=== PATIENT | male | born 1950 | race Caucasian/White ===

== ENCOUNTER 2023-03-30 16:05 | Emergency (ER) | payer MEDICARE, BC ==
[2023-03-30 17:37] LABS: BASOPHILS ABSOLUTE AUTO 0.01 K/uL (0.00-0.20); BASOPHILS PERCENT AUTO 0.1 % (0.0-2.0); EOSINOPHILS ABSOLUTE AUTO 0.03 K/uL (0.00-0.50); EOSINOPHILS PERCENT AUTO 0.2 % (0.0-5.0); HEMOGLOBIN 15.2 g/dL (13.1-16.8); LYMPHOCYTES ABSOLUTE AUTO 0.34 K/uL (0.50-3.50); MEAN CORPUSCULAR HEMOGLOBIN 29.9 pg (28.2-33.3); MEAN CORPUSCULAR HGB CONC 33.8 g/dL (31.7-36.0); MEAN CORPUSCULAR VOLUME 88.4 fL (84.0-98.0); MONOCYTES ABSOLUTE AUTO 0.88 K/uL (0.00-1.00); MONOCYTES PERCENT AUTO 5.1 % (2.0-14.0); NEUTROPHILS ABSOLUTE AUTO 16.05 K/uL (1.40-7.00); NEUTROPHILS PERCENT AUTO 92.6 % (45.0-80.0); PLATELET COUNT,PLT 210 K/uL (150-350); RED BLOOD CELL COUNT 5.09 M/uL (4.33-5.41); RED CELL DISTRIBUTION WIDTH 13.7 % (11.2-14.1); WHITE BLOOD CELL COUNT,WBC 17.3 K/uL (4.0-10.2)
[2023-03-30 17:53] LABS: ALBUMIN 3.9 g/dL (3.4-5.0); ANION GAP 6.8 meq/L (7-15); BILIRUBIN TOTAL 0.7 mg/dL (0.2-1.0); CALCIUM 9.1 mg/dL (8.5-10.1); CARBON DIOXIDE,CO2 29.2 mmol/L (21.0-32.0); CREATININE 1.22 mg/dL (0.51-1.17); EST CRCL DRUG DOSING (CG) 56.05 mL/min; POTASSIUM,K 4.4 mmol/L (3.5-5.1); PROTEIN TOTAL,TP 6.9 g/dL (6.4-8.2)
[2023-03-30 17:55] LABS: INR 2.8
[2023-03-30 18:13] LABS: PROTHROMBIN TIME 27.3 SEC (9.6-11.3)
[2023-03-30] MEDS ORDERED: HYDROmorphone 0.5 MG/0.5 ML Syringe IVPUSH ONE (18:19)
== END 2023-03-30 18:40 ==
LOC: SUPCPDRO 16:05 → LL.ED 16:05
DX: S72.002A Fracture of unspecified part of neck of left femur, initial encounter for closed fracture (principal); I11.0 Hypertensive heart disease with heart failure; I50.9 Heart failure, unspecified; K21.9 Gastro-esophageal reflux disease without esophagitis; Z79.899 Other long term (current) drug therapy; Z88.0 Allergy status to penicillin; W19.XXXA Unspecified fall, initial encounter
CPT/HCPCS: 36415; 80053; 85025; 85610; 96374; 99283; 99283-25; J1170

== ENCOUNTER 2024-05-12 00:01 | Inpatient (IN) | payer MEDICARE, BC, MEDICAID ==
[~2024-05-12 00:01] MED LIST: Pharmacy Consult Order SCH
[2024-05-13] MEDS: Potassium Chloride 20 MEQ Tab.ER PO SCH (07:48)
[2024-05-13] MEDS: Omeprazole 20 MG Cap.CR PO SCH (07:49)
[2024-05-13] MEDS: Polyethylene Glycol 3350 Powder 510 GM Bot PO SCH (07:49)
[2024-05-14 08:11] LABS: INR 3.4 (0.9-1.1)
[2024-05-21 08:22] LABS: BLOOD UREA NITROGEN,BUN 29.0 mg/dL (7-18); CARBON DIOXIDE,CO2 31.0 mmol/L (21.0-32.0); CHLORIDE,CL 104.0 mmol/L (98-107); CREATININE 1.24 mg/dL (0.51-1.17); EST CRCL DRUG DOSING (CG) 67.57 mL/min; GLUCOSE RANDOM 126.0 mg/dL (70-99); POTASSIUM,K 4.1 mmol/L (3.5-5.1); PRO B-TYPE NATRIUR PEPT,BNPPRO 1544.0 pg/mL (0-125); SODIUM,NA 141.0 mmol/L (136-145)
[2024-05-21 08:26] LABS: ESTIMATED GFR 61.0 mL/min (>=60)
[2024-05-22 07:52] LABS: INR 3.7
[2024-05-29 07:32] LABS: INR 3.0
[2024-06-05 07:40] LABS: INR 3.6
[2024-06-06 08:10] LABS: BLOOD UREA NITROGEN,BUN 23.0 mg/dL (7-18); CARBON DIOXIDE,CO2 27.9 mmol/L (21.0-32.0); CHLORIDE,CL 105.0 mmol/L (98-107); CREATININE 1.26 mg/dL (0.51-1.17); EST CRCL DRUG DOSING (CG) 65.49 mL/min; GLUCOSE RANDOM 113.0 mg/dL (70-99); POTASSIUM,K 4.0 mmol/L (3.5-5.1); PRO B-TYPE NATRIUR PEPT,BNPPRO 2103.0 pg/mL (0-125); SODIUM,NA 141.0 mmol/L (136-145)
[2024-06-06 08:12] LABS: ESTIMATED GFR 59.0 mL/min (>=60)
[2024-06-11 08:00] LABS: BLOOD UREA NITROGEN,BUN 26.0 mg/dL (7-18); CARBON DIOXIDE,CO2 29.1 mmol/L (21.0-32.0); CHLORIDE,CL 105.0 mmol/L (98-107); CREATININE 1.22 mg/dL (0.51-1.17); EST CRCL DRUG DOSING (CG) 67.63 mL/min; ESTIMATED GFR 62.0 mL/min (>=60); GLUCOSE RANDOM 115.0 mg/dL (70-99); POTASSIUM,K 4.1 mmol/L (3.5-5.1); PRO B-TYPE NATRIUR PEPT,BNPPRO 1707.0 pg/mL (0-125); SODIUM,NA 142.0 mmol/L (136-145)
[2024-06-12 07:43] LABS: INR 3.0 (0.9-1.1)
[2024-06-26 07:25] LABS: INR 3.3
[2024-07-10 07:26] LABS: INR 3.2
[2024-07-10 11:15] LABS: BLOOD UREA NITROGEN,BUN 25.0 mg/dL (7-18); CARBON DIOXIDE,CO2 29.0 mmol/L (21.0-32.0); CHLORIDE,CL 101.0 mmol/L (98-107); CREATININE 1.45 mg/dL (0.51-1.17); EST CRCL DRUG DOSING (CG) 56.91 mL/min; GLUCOSE RANDOM 155.0 mg/dL (70-99); POTASSIUM,K 3.9 mmol/L (3.5-5.1); PRO B-TYPE NATRIUR PEPT,BNPPRO 2040.0 pg/mL (0-125); SODIUM,NA 137.0 mmol/L (136-145)
[2024-07-10 11:20] LABS: ESTIMATED GFR 50.0 mL/min (>=60)
[2024-07-12] MEDS: BUMETANIDE 2 MG PO SCH (07:25)
[2024-07-17 08:24] LABS: BLOOD UREA NITROGEN,BUN 30.0 mg/dL (7-18); CARBON DIOXIDE,CO2 30.0 mmol/L (21.0-32.0); CHLORIDE,CL 102.0 mmol/L (98-107); CREATININE 1.44 mg/dL (0.51-1.17); EST CRCL DRUG DOSING (CG) 57.3 mL/min; ESTIMATED GFR 51.0 mL/min (>=60); GLUCOSE RANDOM 120.0 mg/dL (70-99); POTASSIUM,K 3.9 mmol/L (3.5-5.1); PRO B-TYPE NATRIUR PEPT,BNPPRO 1741.0 pg/mL (0-125); SODIUM,NA 140.0 mmol/L (136-145)
[2024-07-31 08:49] LABS: INR 3.2 (0.9-1.1)
[2024-07-31 09:00] LABS: BLOOD UREA NITROGEN,BUN 31.0 mg/dL (7-18); CARBON DIOXIDE,CO2 30.1 mmol/L (21.0-32.0); CHLORIDE,CL 102.0 mmol/L (98-107); CREATININE 1.44 mg/dL (0.51-1.17); EST CRCL DRUG DOSING (CG) 57.3 mL/min; GLUCOSE RANDOM 146.0 mg/dL (70-99); POTASSIUM,K 3.8 mmol/L (3.5-5.1); PRO B-TYPE NATRIUR PEPT,BNPPRO 2233.0 pg/mL (0-125); SODIUM,NA 139.0 mmol/L (136-145)
[2024-07-31 09:02] LABS: ESTIMATED GFR 51.0 mL/min (>=60)
[2024-08-12] MEDS: IPRATROPIUM NEB SCH ×2 (18:17→19:25)
[2024-08-12] MEDS: ALBUTEROL NEB SCH ×2 (18:17→19:25)
[2024-08-13] MEDS: Furosemide 20 MG Tab**OWN MED PO SCH (12:11)
[2024-08-20 10:38] LABS: BLOOD UREA NITROGEN,BUN 27.0 mg/dL (7-18); CARBON DIOXIDE,CO2 30.8 mmol/L (21.0-32.0); CHLORIDE,CL 102.0 mmol/L (98-107); CREATININE 1.53 mg/dL (0.51-1.17); EST CRCL DRUG DOSING (CG) 53.93 mL/min; GLUCOSE RANDOM 119.0 mg/dL (70-99); POTASSIUM,K 3.8 mmol/L (3.5-5.1); SODIUM,NA 141.0 mmol/L (136-145)
[2024-08-20 10:39] LABS: ESTIMATED GFR 47.0 mL/min (>=60)
[2024-09-11 07:44] LABS: INR 4.0 (0.9-1.1)
[2024-09-12] MEDS: FLU (Fluad Triv) TS24-25 (65UP)/MF59C/PF 45 MCG/0.5 ML Syringe IM ONE (08:19)
[2024-09-18 07:44] LABS: INR 3.5
[2024-10-02 07:29] LABS: INR 3.6
[2024-10-08 07:38] LABS: INR 3.8
[2024-10-15 07:40] LABS: INR 2.8
[2024-10-22 07:23] LABS: INR 3.5
[2024-10-29 07:48] LABS: INR 3.1
[2024-11-13 07:56] LABS: INR 3.1
[2024-12-03 07:37] LABS: BLOOD UREA NITROGEN,BUN 27.0 mg/dL (7-18); CARBON DIOXIDE,CO2 32.3 mmol/L (21.0-32.0); CHLORIDE,CL 102.0 mmol/L (98-107); CREATININE 1.41 mg/dL (0.51-1.17); EST CRCL DRUG DOSING (CG) 58.52 mL/min; GLUCOSE RANDOM 133.0 mg/dL (70-99); POTASSIUM,K 3.8 mmol/L (3.5-5.1); SODIUM,NA 141.0 mmol/L (136-145)
[2024-12-03 07:42] LABS: ESTIMATED GFR 52.0 mL/min (>=60)
[2024-12-11 07:30] LABS: INR 2.9
[2024-12-15 08:49] LABS: BLOOD UREA NITROGEN,BUN 26.0 mg/dL (7-18); CARBON DIOXIDE,CO2 27.4 mmol/L (21.0-32.0); CHLORIDE,CL 104.0 mmol/L (98-107); CREATININE 1.4 mg/dL (0.51-1.17); EST CRCL DRUG DOSING (CG) 58.94 mL/min; GLUCOSE RANDOM 154.0 mg/dL (70-99); POTASSIUM,K 4.0 mmol/L (3.5-5.1); SODIUM,NA 141.0 mmol/L (136-145)
[2024-12-15 09:11] LABS: ESTIMATED GFR 52.0 mL/min (>=60)
[2024-12-29 07:56] LABS: BASOPHILS ABSOLUTE AUTO 0.03 K/uL (0.00-0.20); BASOPHILS PERCENT AUTO 0.5 % (0.0-2.0); EOSINOPHILS ABSOLUTE AUTO 0.21 K/uL (0.00-0.50); EOSINOPHILS PERCENT AUTO 3.3 % (0.0-5.0); IMMATURE GRAN ABSOLUTE AUTO 0.03 10^3/uL (0.00-0.04); IMMATURE GRAN PERCENT AUTO 0.5 % (0.0-0.4); LYMPHOCYTES ABSOLUTE AUTO 0.75 K/uL (0.50-3.50); LYMPHOCYTES PERCENT AUTO 11.7 % (10.0-50.0); MONOCYTES ABSOLUTE AUTO 0.65 K/uL (0.00-1.00); MONOCYTES PERCENT AUTO 10.1 % (2.0-14.0); NEUTROPHILS ABSOLUTE AUTO 4.75 K/uL (1.40-7.00); NEUTROPHILS PERCENT AUTO 73.9 % (45.0-80.0); PLATELET COUNT,PLT 165 K/uL (150-350); RED BLOOD CELL COUNT 5.46 M/uL (4.33-5.41); RED CELL DISTRIBUTION WIDTH 14.2 % (11.2-14.1); WHITE BLOOD CELL COUNT,WBC 6.4 K/uL (4.0-10.2)
[2025-01-08 07:26] LABS: INR 3.5
[2025-02-05 09:45] LABS: INR 2.9 (0.9-1.1)
[2025-03-05 10:22] LABS: INR 3.8
[2025-03-06 08:40] LABS: BLOOD UREA NITROGEN,BUN 22.0 mg/dL (7-18); CARBON DIOXIDE,CO2 28.9 mmol/L (21.0-32.0); CHLORIDE,CL 104.0 mmol/L (98-107); CREATININE 1.28 mg/dL (0.51-1.17); EST CRCL DRUG DOSING (CG) 54.73 mL/min; ESTIMATED GFR 58.0 mL/min (>=60); GLUCOSE RANDOM 171.0 mg/dL (70-99); POTASSIUM,K 4.0 mmol/L (3.5-5.1); SODIUM,NA 140.0 mmol/L (136-145)
[2025-03-06 10:21] LABS: APPEARANCE,URINE CLEAR; GLUCOSE,URINE NEGATIVE (NEGATIVE); OCCULT BLOOD,URINE NEGATIVE (NEGATIVE)
[2025-03-06 10:33] LABS: EPITHELIAL CELLS,URINE RARE /LPF
[2025-03-09 08:54] LABS: BASOPHILS ABSOLUTE AUTO 0.01 K/uL (0.00-0.20); BASOPHILS PERCENT AUTO 0.1 % (0.0-2.0); EOSINOPHILS ABSOLUTE AUTO 0.00 K/uL (0.00-0.50); EOSINOPHILS PERCENT AUTO 0.0 % (0.0-5.0); IMMATURE GRAN ABSOLUTE AUTO 0.01 10^3/uL (0.00-0.04); IMMATURE GRAN PERCENT AUTO 0.1 % (0.0-0.4); LYMPHOCYTES ABSOLUTE AUTO 0.14 K/uL (0.50-3.50); LYMPHOCYTES PERCENT AUTO 1.8 % (10.0-50.0); MONOCYTES ABSOLUTE AUTO 0.47 K/uL (0.00-1.00); MONOCYTES PERCENT AUTO 5.9 % (2.0-14.0); NEUTROPHILS ABSOLUTE AUTO 7.28 K/uL (1.40-7.00); NEUTROPHILS PERCENT AUTO 92.1 % (45.0-80.0); PLATELET COUNT,PLT 163 K/uL (150-350); RED BLOOD CELL COUNT 5.25 M/uL (4.33-5.41); RED CELL DISTRIBUTION WIDTH 14.2 % (11.2-14.1); WHITE BLOOD CELL COUNT,WBC 7.9 K/uL (4.0-10.2)
[2025-03-09 09:13] LABS: BLOOD UREA NITROGEN,BUN 36.0 mg/dL (7-18); CARBON DIOXIDE,CO2 26.2 mmol/L (21.0-32.0); CHLORIDE,CL 103.0 mmol/L (98-107); CREATININE 1.46 mg/dL (0.51-1.17); EST CRCL DRUG DOSING (CG) 47.98 mL/min; GLUCOSE RANDOM 178.0 mg/dL (70-99); POTASSIUM,K 3.9 mmol/L (3.5-5.1); SODIUM,NA 138.0 mmol/L (136-145)
[2025-03-09 09:16] LABS: ESTIMATED GFR 50.0 mL/min (>=60)
[2025-03-09] MEDS: Promethazine 25 MG/ML SDV IM PRN (10:19)
[2025-03-09] MEDS ORDERED: Promethazine 25 MG/ML SDV IM PRN (10:50)
[2025-03-09] MEDS ORDERED: Loperamide 2 MG Tab PO PRN (10:50)
[2025-03-10 09:02] LABS: BASOPHILS ABSOLUTE AUTO 0.02 K/uL (0.00-0.20); BASOPHILS PERCENT AUTO 0.4 % (0.0-2.0); EOSINOPHILS ABSOLUTE AUTO 0.08 K/uL (0.00-0.50); EOSINOPHILS PERCENT AUTO 1.6 % (0.0-5.0); IMMATURE GRAN ABSOLUTE AUTO 0.02 10^3/uL (0.00-0.04); IMMATURE GRAN PERCENT AUTO 0.4 % (0.0-0.4); LYMPHOCYTES ABSOLUTE AUTO 0.35 K/uL (0.50-3.50); LYMPHOCYTES PERCENT AUTO 7.0 % (10.0-50.0); MONOCYTES ABSOLUTE AUTO 0.84 K/uL (0.00-1.00); MONOCYTES PERCENT AUTO 16.8 % (2.0-14.0); NEUTROPHILS ABSOLUTE AUTO 3.70 K/uL (1.40-7.00); NEUTROPHILS PERCENT AUTO 73.8 % (45.0-80.0); PLATELET COUNT,PLT 148 K/uL (150-350); RED BLOOD CELL COUNT 4.81 M/uL (4.33-5.41); RED CELL DISTRIBUTION WIDTH 14.4 % (11.2-14.1); WHITE BLOOD CELL COUNT,WBC 5.0 K/uL (4.0-10.2)
[2025-03-10 09:15] LABS: BLOOD UREA NITROGEN,BUN 31.0 mg/dL (7-18); CARBON DIOXIDE,CO2 29.7 mmol/L (21.0-32.0); CHLORIDE,CL 103.0 mmol/L (98-107); CREATININE 1.48 mg/dL (0.51-1.17); EST CRCL DRUG DOSING (CG) 47.33 mL/min; ESTIMATED GFR 49.0 mL/min (>=60); GLUCOSE RANDOM 121.0 mg/dL (70-99); POTASSIUM,K 3.5 mmol/L (3.5-5.1); SODIUM,NA 139.0 mmol/L (136-145)
[2025-04-02 08:32] LABS: INR 3.5
[2025-04-30 08:29] LABS: INR 3.5
[2025-05-04] MEDS: Coal Tar Shampoo 251 ML Bottle TOP PRN (08:08)
== END 2025-05-12 13:40 | disposition swing bed (61) | DRG 560 ==
LOC: UNDOADMIN 00:01 → LL.SWG 00:01
PROVIDERS: ADMIT Nurse Practitioner Family; ATTEND Nurse Practitioner Family
DX: S72.002D Fracture of unspecified part of neck of left femur, subsequent encounter for closed fracture with routine healing (principal); I13.0 Hypertensive heart and chronic kidney disease with heart failure and stage 1 through stage 4 chronic kidney disease, or unspecified chronic kidney disease; Z66 Do not resuscitate; I48.91 Unspecified atrial fibrillation; I50.9 Heart failure, unspecified; K21.9 Gastro-esophageal reflux disease without esophagitis; E78.00 Pure hypercholesterolemia, unspecified; G62.9 Polyneuropathy, unspecified; G20.A1 Parkinson's disease without dyskinesia, without mention of fluctuations; N18.9 Chronic kidney disease, unspecified; Z98.890 Other specified postprocedural states; Z79.01 Long term (current) use of anticoagulants; Z88.0 Allergy status to penicillin; Z79.899 Other long term (current) drug therapy; Z95.0 Presence of cardiac pacemaker; Z95.2 Presence of prosthetic heart valve; X58.XXXD Exposure to other specified factors, subsequent encounter
CPT/HCPCS: 36415; 36416; 71046; 80048; 81001; 83735; 83880; 85025; 85610; 90653; 94640; 97165-GO; A9270-GY; G0008; J2550

== ENCOUNTER → 2024-05-12 10:38 | Inpatient (IN) | payer MEDICARE, BC ==
[2023-04-05 15:43] LABS: BASOPHILS ABSOLUTE AUTO 0.03 K/uL (0.00-0.20); BASOPHILS PERCENT AUTO 0.3 % (0.0-2.0); EOSINOPHILS ABSOLUTE AUTO 0.22 K/uL (0.00-0.50); EOSINOPHILS PERCENT AUTO 2.5 % (0.0-5.0); HEMATOCRIT 27.4 % (39.0-49.0); HEMOGLOBIN 9.1 g/dL (13.1-16.8); LYMPHOCYTES ABSOLUTE AUTO 0.36 K/uL (0.50-3.50); LYMPHOCYTES PERCENT AUTO 4.1 % (10.0-50.0); MEAN CORPUSCULAR HEMOGLOBIN 29.8 pg (28.2-33.3); MEAN CORPUSCULAR HGB CONC 33.2 g/dL (31.7-36.0); MEAN CORPUSCULAR VOLUME 89.8 fL (84.0-98.0); MONOCYTES ABSOLUTE AUTO 0.54 K/uL (0.00-1.00); MONOCYTES PERCENT AUTO 6.2 % (2.0-14.0); NEUTROPHILS ABSOLUTE AUTO 7.59 K/uL (1.40-7.00); NEUTROPHILS PERCENT AUTO 86.9 % (45.0-80.0); PLATELET COUNT,PLT 211 K/uL (150-350); RED BLOOD CELL COUNT 3.05 M/uL (4.33-5.41); RED CELL DISTRIBUTION WIDTH 14.1 % (11.2-14.1); WHITE BLOOD CELL COUNT,WBC 8.7 K/uL (4.0-10.2)
[2023-04-05 15:53] LABS: INR 4.2; PROTHROMBIN TIME 39.7 SEC (9.0-11.1)
[2023-04-05] MEDS: Acetaminophen 325 MG Tab PO PRN (18:15)
[2023-04-05] MEDS: Carbidopa/Levodopa 25-100 MG Tab PO SCH (18:16)
[2023-04-06] MEDS: Omeprazole 20 MG Cap.CR PO SCH (08:55)
[2023-04-06 09:35] LABS: INR 3.6; PROTHROMBIN TIME 34.5 SEC (9.0-11.1)
[2023-04-06] MEDS: Warfarin 2.5 MG Tab PO SCH (16:59)
[2023-04-07] MEDS: Tamsulosin 0.4 MG Cap.ER PO SCH (04:09)
[2023-04-07 07:31] LABS: APPEARANCE,URINE CLEAR; BILIRUBIN,URINE NEGATIVE (NEGATIVE); COLOR,URINE YELLOW; GLUCOSE,URINE NEGATIVE (NEGATIVE); KETONES,URINE NEGATIVE (NEGATIVE); LEUKOCYTE ESTERASE,URINE NEGATIVE (NEGATIVE); NITRITE,URINE NEGATIVE (NEGATIVE); OCCULT BLOOD,URINE NEGATIVE (NEGATIVE); PROTEIN,URINE NEGATIVE (NEGATIVE); UROBILINOGEN,URINE >=8.0 E.U./dL (0.2-1.0)
[2023-04-07 08:12] LABS: INR 2.8; PROTHROMBIN TIME 26.8 SEC (9.0-11.1)
[2023-04-07] MEDS: Acetaminophen 500 MG Tab PO SCH (14:55)
[2023-04-07] MEDS: Warfarin 2.5 MG Tab PO SCH (17:19)
[2023-04-08 08:45] LABS: INR 2.9; PROTHROMBIN TIME 28.2 SEC (9.0-11.1)
[2023-04-08] MEDS: Polyethylene Glycol 3350 Powder 17 GM Packet PO SCH (17:05)
[2023-04-09 09:20] LABS: INR 3.8; PROTHROMBIN TIME 35.7 SEC (9.0-11.1)
[2023-04-10 09:35] LABS: INR 3.3
[2023-04-11 07:42] LABS: INR 2.9
[2023-04-12 07:51] LABS: INR 2.7
[2023-04-13 07:30] LABS: INR 2.8
[2023-04-20] MEDS: Polyethylene Glycol 3350 Powder 510 GM Bot PO SCH (07:50)
[2023-04-20 09:11] LABS: INR 2.6
[2023-04-26] MEDS: Acetaminophen 500 MG Tab PO SCH (20:56)
[2023-04-27 07:51] LABS: INR 2.2
[2023-04-30 09:06] LABS: INR 2.4
[2023-05-02] MEDS: Warfarin 2.5 MG Tab PO SCH (17:20)
[2023-05-03 15:25] LABS: BASOPHILS ABSOLUTE AUTO 0.03 K/uL (0.00-0.20); BASOPHILS PERCENT AUTO 0.4 % (0.0-2.0); EOSINOPHILS ABSOLUTE AUTO 0.22 K/uL (0.00-0.50); EOSINOPHILS PERCENT AUTO 3.1 % (0.0-5.0); HEMATOCRIT 40.3 % (39.0-49.0); HEMOGLOBIN 13.1 g/dL (13.1-16.8); LYMPHOCYTES ABSOLUTE AUTO 1.03 K/uL (0.50-3.50); LYMPHOCYTES PERCENT AUTO 14.3 % (10.0-50.0); MEAN CORPUSCULAR HEMOGLOBIN 29.8 pg (28.2-33.3); MEAN CORPUSCULAR HGB CONC 32.5 g/dL (31.7-36.0); MEAN CORPUSCULAR VOLUME 91.8 fL (84.0-98.0); MONOCYTES ABSOLUTE AUTO 0.64 K/uL (0.00-1.00); MONOCYTES PERCENT AUTO 8.9 % (2.0-14.0); NEUTROPHILS ABSOLUTE AUTO 5.27 K/uL (1.40-7.00); NEUTROPHILS PERCENT AUTO 73.3 % (45.0-80.0); PLATELET COUNT,PLT 217 K/uL (150-350); RED BLOOD CELL COUNT 4.39 M/uL (4.33-5.41); RED CELL DISTRIBUTION WIDTH 15.3 % (11.2-14.1); WHITE BLOOD CELL COUNT,WBC 7.2 K/uL (4.0-10.2)
[2023-05-03 15:39] LABS: ALBUMIN 3.6 g/dL (3.4-5.0); ANION GAP 7.7 meq/L (7-15); BILIRUBIN TOTAL 0.6 mg/dL (0.2-1.0); CALCIUM 8.6 mg/dL (8.5-10.1); CARBON DIOXIDE,CO2 27.3 mmol/L (21.0-32.0); CREATININE 1.2 mg/dL (0.51-1.17); EST CRCL DRUG DOSING (CG) 60.18 mL/min; POTASSIUM,K 4.4 mmol/L (3.5-5.1); PROTEIN TOTAL,TP 6.9 g/dL (6.4-8.2)
[2023-05-04] MEDS: Warfarin 2.5 MG Tab PO SCH (17:10)
[2023-05-07 08:48] LABS: INR 2.7
[2023-05-11 07:38] LABS: INR 2.9
[2023-05-16 08:11] LABS: INR 3.2
[2023-05-17 16:07] LABS: APPEARANCE,URINE CLEAR; BILIRUBIN,URINE NEGATIVE (NEGATIVE); COLOR,URINE YELLOW; GLUCOSE,URINE NEGATIVE (NEGATIVE); KETONES,URINE NEGATIVE (NEGATIVE); LEUKOCYTE ESTERASE,URINE SMALL (NEGATIVE); NITRITE,URINE NEGATIVE (NEGATIVE); OCCULT BLOOD,URINE NEGATIVE (NEGATIVE); PH,URINE 5.5 (5.0-9.0); PROTEIN,URINE NEGATIVE (NEGATIVE); UROBILINOGEN,URINE 0.2 E.U./dL (0.2-1.0)
[2023-05-17 16:25] LABS: BACTERIA,URINE NOT SEEN /HPF (NONE TO FEW); EPITHELIAL CELLS,URINE RARE /LPF; MUCUS,URINE RARE /LPF (NEGATIVE); RBC,URINE 0-5 /HPF; WBC,URINE 50-75 /HPF
[2023-05-20] MEDS: Ciprofloxacin 500 MG Tab PO SCH (20:39)
[2023-05-25 07:40] LABS: INR 3.5
[2023-05-27] MEDS: Carbamide Peroxide 6.5% Otic Soln 15 ML Bottle EARBOTH SCH (17:24)
[2023-05-28 07:31] LABS: INR 3.6
[2023-06-01 07:43] LABS: INR 4.3; PROTHROMBIN TIME 40.8 SEC (9.0-11.1)
[2023-06-04] MEDS: Warfarin 2.5 MG Tab PO ONE (17:14)
[2023-06-06 08:57] LABS: INR 2.5
[2023-06-11 07:49] LABS: INR 3.6
[2023-06-12 07:39] LABS: APPEARANCE,URINE CLEAR; BILIRUBIN,URINE NEGATIVE (NEGATIVE); COLOR,URINE YELLOW; GLUCOSE,URINE NEGATIVE (NEGATIVE); KETONES,URINE NEGATIVE (NEGATIVE); LEUKOCYTE ESTERASE,URINE NEGATIVE (NEGATIVE); NITRITE,URINE NEGATIVE (NEGATIVE); OCCULT BLOOD,URINE NEGATIVE (NEGATIVE); PROTEIN,URINE NEGATIVE (NEGATIVE); UROBILINOGEN,URINE 0.2 E.U./dL (0.2-1.0)
[2023-06-12 07:42] LABS: BASOPHILS ABSOLUTE AUTO 0.01 K/uL (0.00-0.20); BASOPHILS PERCENT AUTO 0.2 % (0.0-2.0); EOSINOPHILS ABSOLUTE AUTO 0.21 K/uL (0.00-0.50); EOSINOPHILS PERCENT AUTO 3.6 % (0.0-5.0); HEMATOCRIT 42.5 % (39.0-49.0); LYMPHOCYTES ABSOLUTE AUTO 0.67 K/uL (0.50-3.50); LYMPHOCYTES PERCENT AUTO 11.5 % (10.0-50.0); MEAN CORPUSCULAR HGB CONC 32.9 g/dL (31.7-36.0); MEAN CORPUSCULAR VOLUME 88.2 fL (84.0-98.0); MONOCYTES ABSOLUTE AUTO 0.53 K/uL (0.00-1.00); MONOCYTES PERCENT AUTO 9.1 % (2.0-14.0); NEUTROPHILS ABSOLUTE AUTO 4.43 K/uL (1.40-7.00); NEUTROPHILS PERCENT AUTO 75.6 % (45.0-80.0); PLATELET COUNT,PLT 183 K/uL (150-350); RED BLOOD CELL COUNT 4.82 M/uL (4.33-5.41); RED CELL DISTRIBUTION WIDTH 14.4 % (11.2-14.1); WHITE BLOOD CELL COUNT,WBC 5.9 K/uL (4.0-10.2)
[2023-06-12 07:56] LABS: ANION GAP 7.5 meq/L (7-15); CALCIUM 8.8 mg/dL (8.5-10.1); CARBON DIOXIDE,CO2 29.5 mmol/L (21.0-32.0); CREATININE 1.22 mg/dL (0.51-1.17); EST CRCL DRUG DOSING (CG) 58.31 mL/min; POTASSIUM,K 4.2 mmol/L (3.5-5.1)
[2023-06-14 08:48] LABS: INR 3.2
[2023-06-26 06:57] LABS: APPEARANCE,URINE CLEAR; BILIRUBIN,URINE NEGATIVE (NEGATIVE); COLOR,URINE YELLOW; GLUCOSE,URINE NEGATIVE (NEGATIVE); KETONES,URINE NEGATIVE (NEGATIVE); LEUKOCYTE ESTERASE,URINE NEGATIVE (NEGATIVE); NITRITE,URINE NEGATIVE (NEGATIVE); OCCULT BLOOD,URINE NEGATIVE (NEGATIVE); PH,URINE 6.5 (5.0-9.0); PROTEIN,URINE NEGATIVE (NEGATIVE); UROBILINOGEN,URINE 0.2 E.U./dL (0.2-1.0)
[2023-06-26 07:09] LABS: BACTERIA,URINE NOT SEEN /HPF (NONE TO FEW); EPITHELIAL CELLS,URINE NOT SEEN /LPF; RBC,URINE 0-5 /HPF; WBC,URINE 0-5 /HPF
[2023-06-26 09:00] LABS: ALBUMIN 3.9 g/dL (3.4-5.0); ANION GAP 6.4 meq/L (7-15); BILIRUBIN TOTAL 0.6 mg/dL (0.2-1.0); CARBON DIOXIDE,CO2 30.6 mmol/L (21.0-32.0); CREATININE 1.22 mg/dL (0.51-1.17); EST CRCL DRUG DOSING (CG) 58.31 mL/min; MAGNESIUM 1.9 mg/dL (1.8-2.4); PROTEIN TOTAL,TP 7.2 g/dL (6.4-8.2)
[2023-06-28 07:16] LABS: BASOPHILS ABSOLUTE AUTO 0.01 K/uL (0.00-0.20); BASOPHILS PERCENT AUTO 0.2 % (0.0-2.0); EOSINOPHILS ABSOLUTE AUTO 0.26 K/uL (0.00-0.50); EOSINOPHILS PERCENT AUTO 4.9 % (0.0-5.0); HEMATOCRIT 45.1 % (39.0-49.0); HEMOGLOBIN 14.9 g/dL (13.1-16.8); LYMPHOCYTES ABSOLUTE AUTO 0.64 K/uL (0.50-3.50); LYMPHOCYTES PERCENT AUTO 11.9 % (10.0-50.0); MEAN CORPUSCULAR HEMOGLOBIN 28.9 pg (28.2-33.3); MEAN CORPUSCULAR VOLUME 87.4 fL (84.0-98.0); MONOCYTES ABSOLUTE AUTO 0.58 K/uL (0.00-1.00); MONOCYTES PERCENT AUTO 10.8 % (2.0-14.0); NEUTROPHILS ABSOLUTE AUTO 3.87 K/uL (1.40-7.00); NEUTROPHILS PERCENT AUTO 72.2 % (45.0-80.0); PLATELET COUNT,PLT 170 K/uL (150-350); RED BLOOD CELL COUNT 5.16 M/uL (4.33-5.41); RED CELL DISTRIBUTION WIDTH 14.5 % (11.2-14.1); WHITE BLOOD CELL COUNT,WBC 5.4 K/uL (4.0-10.2)
[2023-06-28 07:50] LABS: INR 3.7; PROTHROMBIN TIME 35.4 SEC (9.0-11.1)
[2023-06-28] MEDS: Warfarin 2.5 MG Tab PO ONE (17:36)
[2023-06-30] MEDS: Warfarin 2.5 MG Tab PO SCH (17:04)
[2023-07-02 08:45] LABS: INR 2.7
[2023-07-09 16:40] LABS: BASOPHILS ABSOLUTE AUTO 0.01 K/uL (0.00-0.20); BASOPHILS PERCENT AUTO 0.2 % (0.0-2.0); EOSINOPHILS ABSOLUTE AUTO 0.18 K/uL (0.00-0.50); HEMATOCRIT 44.7 % (39.0-49.0); LYMPHOCYTES ABSOLUTE AUTO 0.56 K/uL (0.50-3.50); LYMPHOCYTES PERCENT AUTO 9.2 % (10.0-50.0); MEAN CORPUSCULAR HEMOGLOBIN 29.1 pg (28.2-33.3); MEAN CORPUSCULAR HGB CONC 33.6 g/dL (31.7-36.0); MEAN CORPUSCULAR VOLUME 86.6 fL (84.0-98.0); MONOCYTES ABSOLUTE AUTO 0.53 K/uL (0.00-1.00); MONOCYTES PERCENT AUTO 8.7 % (2.0-14.0); NEUTROPHILS ABSOLUTE AUTO 4.82 K/uL (1.40-7.00); NEUTROPHILS PERCENT AUTO 78.9 % (45.0-80.0); PLATELET COUNT,PLT 185 K/uL (150-350); RED BLOOD CELL COUNT 5.16 M/uL (4.33-5.41); RED CELL DISTRIBUTION WIDTH 14.5 % (11.2-14.1); WHITE BLOOD CELL COUNT,WBC 6.1 K/uL (4.0-10.2)
[2023-07-09 16:54] LABS: INR 3.5; PROTHROMBIN TIME 33.1 SEC (9.0-11.1)
[2023-07-09 17:02] LABS: ALBUMIN 3.9 g/dL (3.4-5.0); ANION GAP 11.1 meq/L (7-15); BILIRUBIN TOTAL 0.5 mg/dL (0.2-1.0); CALCIUM 8.9 mg/dL (8.5-10.1); CARBON DIOXIDE,CO2 26.9 mmol/L (21.0-32.0); CREATININE 1.14 mg/dL (0.51-1.17); EST CRCL DRUG DOSING (CG) 62.4 mL/min; HEMOGLOBIN A1C 5.5 % (4.3-5.7); POTASSIUM,K 4.3 mmol/L (3.5-5.1); PROTEIN TOTAL,TP 7.1 g/dL (6.4-8.2)
[2023-07-09] MEDS: Carbidopa/Levodopa 25-250 MG Tab PO SCH (17:42)
[2023-07-10] MEDS: Acetaminophen 500 MG Tab PO SCH (07:12)
[2023-07-13 08:03] LABS: INR 3.9; PROTHROMBIN TIME 37.1 SEC (9.0-11.1)
[2023-07-20 07:28] LABS: INR 3.3
[2023-08-06 08:06] LABS: INR 3.5
[2023-08-27 09:17] LABS: INR 3.6
[2023-08-29] MEDS: FLU (Fluad Quad) 2023-24(65UP)/MF59C/PF 60 MCG/0.5 ML Syringe IM ONE (12:42)
[2023-09-17 08:08] LABS: INR 3.9
[2023-09-24 08:08] LABS: INR 3.4
[2023-10-01 07:43] LABS: INR 3.6
[2023-10-02] MEDS: Warfarin 2.5 MG Tab PO SCH (17:46)
[2023-10-03] MEDS: Warfarin 2.5 MG Tab PO SCH (17:03)
[2023-10-11 07:47] LABS: INR 3.6
[2023-10-13 11:17] LABS: CORONAVIRUS COVID-19 NAA NEGATIVE (NEGATIVE); INFLUENZA A NAA NEGATIVE (NEGATIVE); INFLUENZA B NAA NEGATIVE (NEGATIVE); RESPIRATORY SYNCYTIAL VIR NAA NEGATIVE (NEGATIVE)
[2023-10-13] MEDS: guaiFENesin/Dextromethorphan 100-10 MG/5 ML Soln 10 ML Cup PO PRN (13:25)
[2023-10-17 16:22] LABS: CORONAVIRUS COVID-19 NAA NEGATIVE (NEGATIVE); INFLUENZA A NAA NEGATIVE (NEGATIVE); INFLUENZA B NAA NEGATIVE (NEGATIVE); RESPIRATORY SYNCYTIAL VIR NAA NEGATIVE (NEGATIVE)
[2023-10-18 07:39] LABS: BASOPHILS ABSOLUTE AUTO 0.03 K/uL (0.00-0.20); BASOPHILS PERCENT AUTO 0.4 % (0.0-2.0); EOSINOPHILS ABSOLUTE AUTO 0.44 K/uL (0.00-0.50); EOSINOPHILS PERCENT AUTO 5.7 % (0.0-5.0); HEMATOCRIT 45.3 % (39.0-49.0); HEMOGLOBIN 15.1 g/dL (13.1-16.8); LYMPHOCYTES ABSOLUTE AUTO 0.57 K/uL (0.50-3.50); LYMPHOCYTES PERCENT AUTO 7.4 % (10.0-50.0); MEAN CORPUSCULAR HEMOGLOBIN 28.7 pg (28.2-33.3); MEAN CORPUSCULAR HGB CONC 33.3 g/dL (31.7-36.0); MONOCYTES ABSOLUTE AUTO 0.71 K/uL (0.00-1.00); MONOCYTES PERCENT AUTO 9.2 % (2.0-14.0); NEUTROPHILS ABSOLUTE AUTO 5.95 K/uL (1.40-7.00); NEUTROPHILS PERCENT AUTO 77.3 % (45.0-80.0); PLATELET COUNT,PLT 202 K/uL (150-350); RED BLOOD CELL COUNT 5.27 M/uL (4.33-5.41); RED CELL DISTRIBUTION WIDTH 14.6 % (11.2-14.1); WHITE BLOOD CELL COUNT,WBC 7.7 K/uL (4.0-10.2)
[2023-10-18 07:57] LABS: ANION GAP 9.9 meq/L (7-15); C-REACTIVE PROTEIN 3.47 mg/dL (0.05-0.30); CALCIUM 8.6 mg/dL (8.5-10.1); CARBON DIOXIDE,CO2 26.1 mmol/L (21.0-32.0); CREATININE 1.12 mg/dL (0.51-1.17); EST CRCL DRUG DOSING (CG) 63.51 mL/min; POTASSIUM,K 4.1 mmol/L (3.5-5.1)
[2023-10-18] MEDS: Furosemide 40 MG Tab PO ONE (17:42)
[2023-10-18] MEDS: Albuterol/Ipratropium 3.0-0.5 MG/3 ML Neb Soln NEB SCH (19:38)
[2023-10-19] MEDS: Furosemide 20 MG Tab PO SCH (08:47)
[2023-10-19] MEDS: predniSONE 20 MG Tab PO SCH (08:48)
[2023-10-20] MEDS: Potassium Chloride 10 MEQ Tab.ER PO SCH (09:41)
[2023-10-22 07:24] LABS: ANION GAP 9.4 meq/L (7-15); CALCIUM 8.7 mg/dL (8.5-10.1); CARBON DIOXIDE,CO2 28.6 mmol/L (21.0-32.0); CREATININE 1.12 mg/dL (0.51-1.17); EST CRCL DRUG DOSING (CG) 63.51 mL/min
[2023-10-22] MEDS: Furosemide 20 MG Tab PO SCH (12:59)
[2023-10-25 07:29] LABS: INR 2.6 (0.9-1.1); PROTHROMBIN TIME 24.6 SEC (9.0-11.1)
[2023-10-25 07:38] LABS: ANION GAP 8.4 meq/L (7-15); CALCIUM 8.9 mg/dL (8.5-10.1); CARBON DIOXIDE,CO2 28.6 mmol/L (21.0-32.0); CREATININE 1.27 mg/dL (0.51-1.17); EST CRCL DRUG DOSING (CG) 56.01 mL/min; POTASSIUM,K 4.1 mmol/L (3.5-5.1)
[2023-10-29 09:41] LABS: ANION GAP 12.4 meq/L (7-15); CALCIUM 8.6 mg/dL (8.5-10.1); CARBON DIOXIDE,CO2 24.6 mmol/L (21.0-32.0); CREATININE 1.33 mg/dL (0.51-1.17); EST CRCL DRUG DOSING (CG) 53.48 mL/min
[2023-10-30] MEDS: guaiFENesin 600 MG Tab.ER PO SCH (20:07)
[2023-10-31] MEDS: Furosemide 20 MG Tab PO SCH (07:40)
[2023-10-31 07:41] LABS: ANION GAP 6.7 meq/L (7-15); CALCIUM 8.8 mg/dL (8.5-10.1); CARBON DIOXIDE,CO2 28.3 mmol/L (21.0-32.0); CREATININE 1.32 mg/dL (0.51-1.17); EST CRCL DRUG DOSING (CG) 53.89 mL/min
[2023-11-08 09:19] LABS: INR 3.9
[2023-11-29 07:47] LABS: INR 3.4
[2023-12-13 07:45] LABS: INR 3.3
[2023-12-24 11:08] LABS: BASOPHILS ABSOLUTE AUTO 0.02 K/uL (0.00-0.20); BASOPHILS PERCENT AUTO 0.4 % (0.0-2.0); EOSINOPHILS ABSOLUTE AUTO 0.21 K/uL (0.00-0.50); EOSINOPHILS PERCENT AUTO 3.8 % (0.0-5.0); HEMATOCRIT 46.5 % (39.0-49.0); HEMOGLOBIN 15.8 g/dL (13.1-16.8); LYMPHOCYTES ABSOLUTE AUTO 0.59 K/uL (0.50-3.50); LYMPHOCYTES PERCENT AUTO 10.5 % (10.0-50.0); MEAN CORPUSCULAR HEMOGLOBIN 29.3 pg (28.2-33.3); MEAN CORPUSCULAR VOLUME 86.1 fL (84.0-98.0); MONOCYTES ABSOLUTE AUTO 0.68 K/uL (0.00-1.00); MONOCYTES PERCENT AUTO 12.1 % (2.0-14.0); NEUTROPHILS PERCENT AUTO 73.2 % (45.0-80.0); PLATELET COUNT,PLT 163 K/uL (150-350); RED CELL DISTRIBUTION WIDTH 14.4 % (11.2-14.1); WHITE BLOOD CELL COUNT,WBC 5.6 K/uL (4.0-10.2)
[2023-12-24] MEDS: guaiFENesin 600 MG Tab.ER PO PRN (11:16)
[2023-12-24 11:40] LABS: ANION GAP 9.9 meq/L (7-15); CALCIUM 8.6 mg/dL (8.5-10.1); CARBON DIOXIDE,CO2 28.3 mmol/L (21.0-32.0); CREATININE 1.4 mg/dL (0.51-1.17); EST CRCL DRUG DOSING (CG) 50.81 mL/min; POTASSIUM,K 4.2 mmol/L (3.5-5.1)
[2023-12-25 15:30] LABS: CORONAVIRUS COVID-19 NAA NEGATIVE (NEGATIVE); INFLUENZA A NAA NEGATIVE (NEGATIVE); INFLUENZA B NAA NEGATIVE (NEGATIVE); RESPIRATORY SYNCYTIAL VIR NAA POSITIVE (NEGATIVE)
[2023-12-25] MEDS: Albuterol/Ipratropium 3.0-0.5 MG/3 ML Neb Soln INH PRN (19:33)
[2024-01-01] MEDS: Clindamycin HCl 150 MG Cap PO ONE (13:00)
[2024-01-03 07:31] LABS: INR 3.1
[2024-01-15] MEDS: Clindamycin HCl 150 MG Cap PO ONE (11:54)
[2024-01-17 11:30] LABS: BASOPHILS ABSOLUTE AUTO 0.02 K/uL (0.00-0.20); BASOPHILS PERCENT AUTO 0.3 % (0.0-2.0); EOSINOPHILS ABSOLUTE AUTO 0.18 K/uL (0.00-0.50); EOSINOPHILS PERCENT AUTO 2.9 % (0.0-5.0); HEMATOCRIT 47.3 % (39.0-49.0); HEMOGLOBIN 16.4 g/dL (13.1-16.8); LYMPHOCYTES ABSOLUTE AUTO 0.61 K/uL (0.50-3.50); LYMPHOCYTES PERCENT AUTO 9.8 % (10.0-50.0); MEAN CORPUSCULAR HEMOGLOBIN 29.8 pg (28.2-33.3); MEAN CORPUSCULAR HGB CONC 34.7 g/dL (31.7-36.0); MEAN CORPUSCULAR VOLUME 85.8 fL (84.0-98.0); MONOCYTES ABSOLUTE AUTO 0.59 K/uL (0.00-1.00); MONOCYTES PERCENT AUTO 9.5 % (2.0-14.0); NEUTROPHILS ABSOLUTE AUTO 4.81 K/uL (1.40-7.00); NEUTROPHILS PERCENT AUTO 77.5 % (45.0-80.0); PLATELET COUNT,PLT 191 K/uL (150-350); RED BLOOD CELL COUNT 5.51 M/uL (4.33-5.41); RED CELL DISTRIBUTION WIDTH 14.6 % (11.2-14.1); WHITE BLOOD CELL COUNT,WBC 6.2 K/uL (4.0-10.2)
[2024-01-17 11:46] LABS: PROTHROMBIN TIME 28.4 SEC (9.0-11.1)
[2024-01-17 11:53] LABS: ALBUMIN 3.7 g/dL (3.4-5.0); ANION GAP 8.7 meq/L (7-15); BILIRUBIN TOTAL 0.6 mg/dL (0.2-1.0); CALCIUM 8.7 mg/dL (8.5-10.1); CARBON DIOXIDE,CO2 25.3 mmol/L (21.0-32.0); CREATININE 1.32 mg/dL (0.51-1.17); EST CRCL DRUG DOSING (CG) 53.89 mL/min; POTASSIUM,K 4.2 mmol/L (3.5-5.1); PROTEIN TOTAL,TP 7.2 g/dL (6.4-8.2)
[2024-01-17 14:01] LABS: APPEARANCE,URINE CLEAR; BILIRUBIN,URINE NEGATIVE (NEGATIVE); COLOR,URINE YELLOW; GLUCOSE,URINE NEGATIVE (NEGATIVE); KETONES,URINE NEGATIVE (NEGATIVE); LEUKOCYTE ESTERASE,URINE NEGATIVE (NEGATIVE); NITRITE,URINE NEGATIVE (NEGATIVE); OCCULT BLOOD,URINE NEGATIVE (NEGATIVE); PH,URINE 5.5 (5.0-9.0); PROTEIN,URINE NEGATIVE (NEGATIVE); UROBILINOGEN,URINE 0.2 E.U./dL (0.2-1.0)
[2024-01-21] MEDS: Carbidopa/Levodopa 25-250 MG Tab PO SCH (16:20)
[2024-01-28] MEDS: Clindamycin HCl 150 MG Cap PO ONE (11:50)
[2024-01-31] MEDS: TRIAMCINOLONE TOP SCH (19:35)
[2024-01-31] MEDS: NYSTATIN TOP SCH (19:35)
[2024-02-15 07:23] LABS: INR 2.8
[2024-02-22] MEDS: Nystatin Topical Powder 15 GM Bottle TOP SCH (19:51)
[2024-02-25] MEDS: Nystatin Topical Powder 15 GM Bottle TOP SCH (19:52)
[2024-03-14 13:42] LABS: BASOPHILS ABSOLUTE AUTO 0.02 K/uL (0.00-0.20); BASOPHILS PERCENT AUTO 0.4 % (0.0-2.0); EOSINOPHILS ABSOLUTE AUTO 0.23 K/uL (0.00-0.50); HEMATOCRIT 44.3 % (39.0-49.0); HEMOGLOBIN 15.1 g/dL (13.1-16.8); LYMPHOCYTES PERCENT AUTO 10.9 % (10.0-50.0); MEAN CORPUSCULAR HEMOGLOBIN 29.9 pg (28.2-33.3); MEAN CORPUSCULAR HGB CONC 34.1 g/dL (31.7-36.0); MEAN CORPUSCULAR VOLUME 87.7 fL (84.0-98.0); MONOCYTES ABSOLUTE AUTO 0.77 K/uL (0.00-1.00); MONOCYTES PERCENT AUTO 16.8 % (2.0-14.0); NEUTROPHILS ABSOLUTE AUTO 3.06 K/uL (1.40-7.00); NEUTROPHILS PERCENT AUTO 66.9 % (45.0-80.0); PLATELET COUNT,PLT 153 K/uL (150-350); RED BLOOD CELL COUNT 5.05 M/uL (4.33-5.41); RED CELL DISTRIBUTION WIDTH 14.5 % (11.2-14.1); WHITE BLOOD CELL COUNT,WBC 4.6 K/uL (4.0-10.2)
[2024-03-14 14:11] LABS: ANION GAP 8.6 meq/L (7-15); CARBON DIOXIDE,CO2 25.4 mmol/L (21.0-32.0); CREATININE 1.31 mg/dL (0.51-1.17); EST CRCL DRUG DOSING (CG) 54.3 mL/min
[2024-03-15] MEDS: POTASSIUM CHLORIDE 20 MEQ PO SCH (07:22)
[2024-03-15] MEDS: Furosemide 20 MG Tab #OWN MED# PO SCH (07:23)
[2024-03-15 19:23] LABS: BASOPHILS ABSOLUTE AUTO 0.01 K/uL (0.00-0.20); BASOPHILS PERCENT AUTO 0.2 % (0.0-2.0); EOSINOPHILS ABSOLUTE AUTO 0.21 K/uL (0.00-0.50); EOSINOPHILS PERCENT AUTO 3.4 % (0.0-5.0); HEMOGLOBIN 15.2 g/dL (13.1-16.8); LYMPHOCYTES ABSOLUTE AUTO 0.37 K/uL (0.50-3.50); MEAN CORPUSCULAR HEMOGLOBIN 29.6 pg (28.2-33.3); MEAN CORPUSCULAR HGB CONC 33.8 g/dL (31.7-36.0); MEAN CORPUSCULAR VOLUME 87.5 fL (84.0-98.0); MONOCYTES ABSOLUTE AUTO 0.57 K/uL (0.00-1.00); MONOCYTES PERCENT AUTO 9.3 % (2.0-14.0); NEUTROPHILS ABSOLUTE AUTO 4.98 K/uL (1.40-7.00); NEUTROPHILS PERCENT AUTO 81.1 % (45.0-80.0); PLATELET COUNT,PLT 155 K/uL (150-350); RED BLOOD CELL COUNT 5.14 M/uL (4.33-5.41); RED CELL DISTRIBUTION WIDTH 14.5 % (11.2-14.1); WHITE BLOOD CELL COUNT,WBC 6.1 K/uL (4.0-10.2)
[2024-03-15 19:43] LABS: ANION GAP 9.9 meq/L (7-15); CALCIUM 7.9 mg/dL (8.5-10.1); CARBON DIOXIDE,CO2 25.1 mmol/L (21.0-32.0); CREATININE 1.43 mg/dL (0.51-1.17); EST CRCL DRUG DOSING (CG) 49.74 mL/min; MAGNESIUM 1.7 mg/dL (1.8-2.4); POTASSIUM,K 4.6 mmol/L (3.5-5.1)
[2024-03-18 07:50] LABS: ANION GAP 10.8 meq/L (7-15); CALCIUM 8.4 mg/dL (8.5-10.1); CARBON DIOXIDE,CO2 24.2 mmol/L (21.0-32.0); CREATININE 1.15 mg/dL (0.51-1.17); EST CRCL DRUG DOSING (CG) 61.86 mL/min; POTASSIUM,K 4.1 mmol/L (3.5-5.1)
[2024-03-19] MEDS: predniSONE 20 MG Tab PO SCH (07:39)
[2024-03-19 08:18] LABS: INR 3.4
[2024-03-20 06:43] LABS: INR 3.6
[2024-03-21 08:01] LABS: INR 2.8 (0.9-1.1); PROTHROMBIN TIME 26.6 SEC (9.0-11.1)
[2024-03-21] MEDS: Benzonatate 100 MG Cap PO PRN (08:01)
[2024-03-21 08:10] LABS: ANION GAP 7.8 meq/L (7-15); CALCIUM 8.2 mg/dL (8.5-10.1); CARBON DIOXIDE,CO2 28.2 mmol/L (21.0-32.0); CREATININE 1.25 mg/dL (0.51-1.17); EST CRCL DRUG DOSING (CG) 56.91 mL/min; POTASSIUM,K 3.8 mmol/L (3.5-5.1)
[2024-03-22] MEDS: POTASSIUM CHLORIDE 20 MEQ PO SCH (07:01)
[2024-03-22] MEDS: Furosemide 40 MG Tab PO SCH (07:01)
[2024-03-22 08:34] LABS: INR 2.6
[2024-03-23 09:01] LABS: INR 2.7
[2024-03-24 07:23] LABS: INR 3.2
[2024-03-25 07:58] LABS: INR 3.2
[2024-03-27 07:15] LABS: CALCIUM 8.6 mg/dL (8.5-10.1); CARBON DIOXIDE,CO2 25.8 mmol/L (21.0-32.0); CREATININE 1.09 mg/dL (0.51-1.17); EST CRCL DRUG DOSING (CG) 65.26 mL/min; POTASSIUM,K 4.2 mmol/L (3.5-5.1)
[2024-03-27 07:23] LABS: ANION GAP 11.4 meq/L (7-15)
[2024-03-28 07:29] LABS: INR 3.6
[2024-03-29] MEDS: Warfarin 2.5 MG Tab PO SCH (17:13)
[2024-04-04 09:50] LABS: INR 4.4 (0.9-1.1); PROTHROMBIN TIME 41.5 SEC (9.0-11.1)
[2024-04-10 08:47] LABS: INR 2.8
[2024-04-17 07:26] LABS: INR 3.3
[2024-05-01 08:00] LABS: INR 3.8 (0.9-1.1); PROTHROMBIN TIME 36.4 SEC (9.0-11.1)
[2024-05-08 08:28] LABS: INR 2.7 (0.9-1.1); PROTHROMBIN TIME 26.4 SEC (9.0-11.1)
[2024-05-09 13:21] LABS: ALBUMIN 3.6 g/dL (3.4-5.0); ANION GAP 8.6 meq/L (7-15); BILIRUBIN TOTAL 0.7 mg/dL (0.2-1.0); CALCIUM 8.5 mg/dL (8.5-10.1); CARBON DIOXIDE,CO2 27.4 mmol/L (21.0-32.0); CREATININE 1.51 mg/dL (0.51-1.17); EST CRCL DRUG DOSING (CG) 47.11 mL/min; POTASSIUM,K 4.1 mmol/L (3.5-5.1)
[~2024-05-12 10:38] MED LIST changes: +Acetaminophen 500 MG Tab PO SCH; +Albuterol/Ipratropium 3.0-0.5 MG/3 ML Neb Soln INH PRN; +Coal Tar Shampoo 251 ML Bottle TOP PRN; +Furosemide 20 MG Tab PO SCH; +HYDROmorphone 0.5 MG/0.5 ML Syringe IVPUSH PRN; +HYDROmorphone 2 MG Tab PO PRN; +LORazepam 1 MG Tab PO PRN; +Ondansetron 4 MG Tab.DIS PO PRN; +Ondansetron 4 MG/2 ML SDV IVPUSH PRN; -Pharmacy Consult Order SCH; +Potassium Chloride 10 MEQ Tab.ER PO SCH; +Sodium Chloride 0.9% 10 ML Syringe FLUSH PRN; +Warfarin 2.5 MG Tab PO ONE; +Warfarin 2.5 MG Tab PO SCH
== END | disposition still patient (30) | DRG 560 ==
LOC: LL.MS 04-05 13:40 → UNDOADMIN 04-05 13:40 → LL.SWG 04-19 10:41 → LL.MS 04-19 10:41 → UNDOADMIN 04-25 12:00 → LL.SWG 04-25 12:00 → LL.MS 04-25 12:00
PROVIDERS: ADMIT Nurse Practitioner Family; ATTEND Nurse Practitioner Family
DX: S72.002D Fracture of unspecified part of neck of left femur, subsequent encounter for closed fracture with routine healing (principal); I38 Endocarditis, valve unspecified; J44.1 Chronic obstructive pulmonary disease with (acute) exacerbation; J44.0 Chronic obstructive pulmonary disease with (acute) lower respiratory infection; I48.91 Unspecified atrial fibrillation; Z66 Do not resuscitate; I50.9 Heart failure, unspecified; E78.00 Pure hypercholesterolemia, unspecified; K21.9 Gastro-esophageal reflux disease without esophagitis; G20.A1 Parkinson's disease without dyskinesia, without mention of fluctuations; G62.9 Polyneuropathy, unspecified; N18.9 Chronic kidney disease, unspecified; I35.9 Nonrheumatic aortic valve disorder, unspecified; I12.9 Hypertensive chronic kidney disease with stage 1 through stage 4 chronic kidney disease, or unspecified chronic kidney disease; L98.419 Non-pressure chronic ulcer of buttock with unspecified severity; Z98.890 Other specified postprocedural states; Z79.01 Long term (current) use of anticoagulants; Z88.0 Allergy status to penicillin; Z79.899 Other long term (current) drug therapy; Z95.0 Presence of cardiac pacemaker
CPT/HCPCS: 0241U; 36415; 36416; 51798; 70450; 71046; 80048; 80053; 81001; 81003; 82607; 83036; 83735; 83880; 85025; 85610; 86140; 87070; 87086; 87088; 87186; 87205; 90694; 94640; 97110-GO; 97110-GP; 97162-GP; 97530-GO; 97530-GP; 97535-GO; A9270-GY; G0008; J7512; J7620-GY